=== PATIENT | male | born 2000 | race American Indian/Alaskan Native ===

== ENCOUNTER → 2024-08-04 | Outpatient (CLI) | payer OTHER, SELFPAY ==
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
== END | disposition home or self-care (01) ==
LOC: CDIM 14:40
PROVIDERS: PCP Physician Assistant; Referring Provider Physician Assistant; Visit Provider Physician Assistant
DX: S09.93XA Unspecified injury of face, initial encounter (principal); S19.9XXA Unspecified injury of neck, initial encounter; S29.9XXA Unspecified injury of thorax, initial encounter; V89.2XXA Person injured in unspecified motor-vehicle accident, traffic, initial encounter
CPT/HCPCS: 70150; 72050; 72072